=== PATIENT | female | born 1965 | race Caucasian/White ===

== ENCOUNTER → 2017-02-13 | Outpatient (CLI) | payer OTHER | END | disposition home or self-care (01) | LOC: RD 13:08 | DX: M54.42 Lumbago with sciatica, left side (principal) ==

== ENCOUNTER 2017-11-24 16:15 | Emergency (ER) | payer OTHER ==
[~2017-11-24] VITALS: Ht 162.6 cm; Wt 86.2 kg
[2017-11-24 16:34] VITALS: Ht 162.6 cm; Wt 86.2 kg
[2017-11-24 18:11] VITALS: BP 116/64
== END 2017-11-24 18:12 | disposition home or self-care (01) ==
LOC: ED 16:15
DX: M54.5 Low back pain (principal)
CPT/HCPCS: J0780; J3010

== ENCOUNTER → 2018-11-25 | Outpatient (CLI) | payer OTHER ==
[2018-11-25 15:43] LABS: BASOPHIL % 0.4 % (0-2); PLATELET COUNT 228 x10^3mcL (130-400); RED CELL DISTRIBUTION WIDTH 12.2 % (11.5-14.5)
[2018-11-25 15:53] LABS: ALKALINE PHOSPHATASE 93 U/L (46-116); ALT/SGPT 33 U/L (14-59); AST/SGOT 23 U/L (15-37); BILIRUBIN TOTAL 1.16 mg/dL (0.20-1.00); CALCIUM 9.7 mg/dL (8.5-10.1); CARBON DIOXIDE 27.8 mmol/L (21-32); CHLORIDE SERUM 102 mmol/L (98-107); CHOLESTEROL 184 mg/dL (<200); CHOLESTEROL/HDL RATIO 3.9; GFR1 > 60 mL/min; GLUCOSE SERUM 92 mg/dL (74-106); HDL CHOLESTEROL 47 mg/dL (40-60); POTASSIUM SERUM 5.2 mmol/L (3.5-5.1); SODIUM SERUM 139 mmol/L (136-145); TOTAL PROTEIN, SERUM 7.5 g/dL (6.4-8.2); TRIGLYCERIDES 65 mg/dL (<150)
[2018-11-25 16:15] LABS: UA SPECIFIC GRAVITY <=1.005 (1.005-1.035); microscopic required? YES; urine erythrocyte TRACE (NEGATIVE)
== END | disposition home or self-care (01) ==
LOC: LB 14:59
DX: R51 Headache (principal); H53.419 Scotoma involving central area, unspecified eye

== ENCOUNTER → 2018-12-12 | Outpatient (CLI) | payer OTHER ==
[2018-12-12 12:55] LABS: UA SPECIFIC GRAVITY <=1.005 (1.005-1.035); microscopic required? YES; urine erythrocyte TRACE (NEGATIVE)
== END | disposition home or self-care (01) ==
LOC: LB 12:26
PROVIDERS: Family Medicine
DX: N39.0 Urinary tract infection, site not specified (principal)

== ENCOUNTER → 2018-12-19 | Outpatient (CLI) | payer OTHER | END | disposition home or self-care (01) | LOC: MI 12:17 | PROC: B030YZZ Magnetic Resonance Imaging (MRI) of Brain using Other Contrast (ICD-10-PCS; principal; 2018-12-19) | DX: R51 Headache (principal) | CPT/HCPCS: A9577 ==

== ENCOUNTER 2019-09-06 10:01 | Emergency (ER) | payer OTHER ==
[~2019-09-06] VITALS: Ht 162.6 cm; Wt 83.0 kg
[2019-09-06 10:12] VITALS: Ht 162.6 cm; Wt 83.0 kg
[2019-09-06 12:17] VITALS: BP 147/87
== END 2019-09-06 12:15 | disposition home or self-care (01) ==
LOC: ED 10:01
DX: R04.0 Epistaxis (principal); Z86.32 Personal history of gestational diabetes
CPT/HCPCS: Q0162